=== PATIENT | female | born 1970 | race Caucasian/White ===

== ENCOUNTER 2019-06-16 05:28 | Day surgery (SDC) | payer OTHER ==
[2019-06-03 12:00] LABS: BASOPHILS # (AUTO) 0.1 X10'3 (0-0.2); BASOPHILS % (AUTO) 0.9 % (0-1); EOSINOPHILS % (AUTO) 0.3 % (0-6); LYMPHOCYTES # (AUTO) 1.8 X10'3 (1.1-4.8); LYMPHOCYTES % (AUTO) 25.1 % (21-51); MEAN CORPUSCULAR HEMOGLOBIN 30.5 PG (27.0-31.0); MEAN CORPUSCULAR HGB CONC 33.6 g/dL (33.0-36.5); MEAN CORPUSCULAR VOLUME 90.8 FL (78-98); MEAN PLATELET VOLUME 8.7 FL (7.4-10.4); MONOCYTES # (AUTO) 0.6 X10'3 (0-0.9); MONOCYTES % (AUTO) 8.3 % (2-12); NEUTROPHILS # (AUTO) 4.7 X10'3 (1.8-7.7); NEUTROPHILS % (AUTO) 65.4 % (42-75); PRE OP HEMATOCRIT 38.6 % (35.0-45.0); PRE OP PLATELET COUNT 316 X10'3 (140-440); RED BLOOD COUNT 4.25 X10'6 (4.20-5.60); RED CELL DISTRIBUTION WIDTH 13.8 % (11.5-14.5)
[2019-06-03 12:08] LABS: ALBUMIN 3.6 G/DL (3.4-5.0); ALKALINE PHOSPHATASE 46 IU/L (46-116); BLOOD UREA NITROGEN 12 MG/DL (7-18); BUN/CREATININE RATIO 17.4 (6.6-38.0); CALCIUM 8.7 MG/DL (8.5-10.1); CHLORIDE 106 MMOL/L (99-107); CREATININE 0.69 MG/DL (0.40-0.90); PRE OP ALT 23 U/L (30-65); PRE OP ANION GAP 9 (8-16); PRE OP AST 17 U/L (10-37); PRE OP BILIRUB, TOTAL 0.5 MG/DL (0.0-1.0); PRE OP GLUCOSE 124 MG/DL (70-104); PRE OP POTASSIUM 3.7 MMOL/L (3.4-5.1); PRE OP SODIUM 140 MMOL/L (135-145); TOTAL CARBON DIOXIDE 25.2 MMOL/L (24-32); TOTAL PROTEIN 7.2 G/DL (6.4-8.2); eGFR 90 ML/MIN
[2019-06-16] VITALS (10 sets, daily range): BP systolic 111–127; BP diastolic 41–80
[~2019-06-16] VITALS: Ht 154.9 cm; Wt 69.6 kg
[~2019-06-16 05:28] MED LIST: LEVO75TA PO; OMEP20CA11 PO; cefazolin/dext.iso 2gm/100ml 100 ML IV ONE; ringers solution, lacted 1,000 ML IV SCH
[2019-06-16] MEDS ORDERED: cefazolin/dext.iso 2gm/100ml 100 ML IV ONE (05:30)
[2019-06-16] MEDS ORDERED: famotidine 20mg tablet PO ONE (05:30)
[2019-06-16] MEDS ORDERED: LIDOcaine 1% (10mg/ml) 2ml vial ONE (05:54)
[2019-06-16] MEDS ORDERED: BUPIVAcaine/PF 2.5mg/ml (0.25%) 10ml vial ONE (07:07)
[2019-06-16] MEDS ORDERED: MIDAZolam 5mg/ml 2ml vial IV ONE (07:15)
[2019-06-16] MEDS ORDERED: BUPIVAcaine 0.5% inj/PF 30 ML ONE (07:17)
[2019-06-16] MEDS ORDERED: BUPIVACAINE liposomal/PF 13.3 MG/ML vial IM ONE (07:17)
[2019-06-16] MEDS ORDERED: sevoflurane 250ml liquid IH ONE (07:17)
[2019-06-16] MEDS ORDERED: phenylephrine 10mg/ml inj. ONE (07:17)
[2019-06-16] MEDS ORDERED: fentaNYL/PF 50MCG/1 ML 2ML syringe ONE (07:22)
[2019-06-16] MEDS ORDERED: midazolam 2 mg/2 ml injection ONE (07:22)
[2019-06-16] MEDS ORDERED: propofol inj 20 ML IV ONE (07:23)
[2019-06-16] MEDS ORDERED: LIDOcaine 2% (20mg/ml) 5ml vial ONE (07:23)
[2019-06-16] MEDS ORDERED: dexamethasone sod phosphate 4mg/ml inj. ONE (07:23)
[2019-06-16] MEDS ORDERED: ondansetron/PF 4mg/2ml inj ONE (07:24)
[2019-06-16] MEDS ORDERED: ringers solution, lacted 1,000 ML IV SCH (08:03)
[2019-06-16] MEDS ORDERED: labetalol 20mg/4ml (5mg/ml) syringe IV PRN (08:05)
[2019-06-16] MEDS ORDERED: hydrALAZINE 20mg/ml inj. IV PRN (08:05)
[2019-06-16] MEDS ORDERED: HYDROmorphone inj. 0.5 MG/0.5 ML DISP.SYRIN IV PRN (08:05)
[2019-06-16] MEDS ORDERED: ondansetron/PF 4mg/2ml inj IV PRN (08:05)
[2019-06-16] MEDS ORDERED: fentaNYL/PF 50MCG/1 ML 2ML syringe IV PRN (08:05)
--- NOTE | 2019-06-16 09:05 | NUR ---
Received from OR via BED, accompanied by Anesthesiologist DR [email or web address]-- and report given by Anesthesiolgist. PATIENT A&OX4, DENIES PAIN, V/S WNL, NEUROVASCULAR CHECKS INTACT, 20G PIV RUE, SCD ON, DRESSING TO LEFT SHOULDER CDI WITH SLING AND COLD POWDER PACK
[2019-06-16] MEDS: fentaNYL/PF 50MCG/1 ML 2ML syringe IV PRN ×2 (09:14→09:21)
[2019-06-16] MEDS ORDERED: HYDROcodone/acetaminophen 10/325mg tab PO PRN (09:20)
[2019-06-16] MEDS ORDERED: HYDROcodone/acetaminophen 5mg/325mg tablet PO ONE (09:25)
[2019-06-16] MEDS: HYDROmorphone inj. 0.5 MG/0.5 ML DISP.SYRIN IV PRN ×2 (09:32→09:44)
--- NOTE | 2019-06-16 10:15 | NUR ---
PATIENT A&OX4, DENIES PAIN, V/S WNL, NEUROVASCULAR CHECKS INTACT, 20G PIV RUE D/C, SCD OFF, DRESSING TO LEFT SHOULDER CDI WITH SLING AND COLD POWDER PACK , I HAVE REVIEWED D/C INSTRUCTIONS WITH PATIENT AND FAMILY AND THEY HAVE VERBALIZED UNDERSTANDING. PATIENT D/C HOME WITH ALL BELONGINGS AND FAMILY GAVE TRANSPORT HOME.
== END 2019-06-16 10:15 | disposition home or self-care (01) ==
LOC: PAS 05:28
PROVIDERS: ATTEND Orthopaedic Surgery
DX: M75.82 Other shoulder lesions, left shoulder (principal); M19.012 Primary osteoarthritis, left shoulder; M75.22 Bicipital tendinitis, left shoulder; G89.18 Other acute postprocedural pain; Z79.899 Other long term (current) drug therapy
CPT/HCPCS: 29824; 29826; 36415; 64415; 80053; 82948; 85025; C9290; J1100; J1170; J2001; J2250; J2370; J2405; J2704; J3010; J3490; J7120; A4565; A4618; A6449